=== PATIENT | male | born 1955 | race Hispanic/Latino ===

== ENCOUNTER 2024-10-29 09:43 | Day surgery (SDC) | payer OTHER ==
[~2024-10-29] VITALS: Ht 167.6 cm; Wt 80.7 kg
[2024-10-29] VITALS (13 sets, daily range): BP systolic 107–182; BP diastolic 61–89; PULSE 55–77; RESP 14–18; TEMP 97.6–98.4
[~2024-10-29 09:43] MED LIST: INDOMETHACIN 100 MG SUPP.RECT RC ONE
[2024-10-29] MEDS ORDERED: APIX5TAB PO (10:16)
[2024-10-29] MEDS ORDERED: LOSA50TA64 PO (10:16)
[2024-10-29] MEDS ORDERED: URSO500T10 PO (10:16)
[2024-10-29] MEDS: 0.9%NACL 1000ML 1,000 ML IV ONE (10:31)
[2024-10-29] MEDS ORDERED: SUCCINYLCHOLINE CHLORIDE 20 MG/ML 10 ML VIAL ONE (13:16)
[2024-10-29] MEDS ORDERED: proPOFol 10 MG/ML 20ML VIAL IV ONE (13:17)
[2024-10-29] MEDS ORDERED: ondanSETRON 4MG INJ ONE (13:17)
[2024-10-29] MEDS ORDERED: FENTanyl CITRate PF 50 MCG/1 ML 2ML VIAL ONE (13:17)
[2024-10-29] MEDS ORDERED: GLUCAGON 1MG KIT 1 MG ML ONE (14:12)
[2024-10-29] MEDS ORDERED: IOHEXOL-350 50ML VIAL IV ONE (15:38)
--- NOTE | 2024-10-29 16:42 | HMCIMG ---
ERCP BILI/PANC DUCT REASON: ABNORMAL RESULTS OF LIVER FUNCTION Studies, malignant NEOPLASM OF EXTRAHEPATIC. COMPARISON: None TECHNIQUE: ERCP was performed by referring physician. FINDINGS: Please see procedure report for by the referring physician. IMPRESSION: ERCP.
== END 2024-10-29 15:51 | disposition home or self-care (01) ==
LOC: ENDO 09:43 → DAH 09:43 → ENDO 15:51
PROVIDERS: ATTEND Internal Medicine Gastroenterology
DX: K80.51 Calculus of bile duct without cholangitis or cholecystitis with obstruction (principal); R94.5 Abnormal results of liver function studies; C24.0 Malignant neoplasm of extrahepatic bile duct; D69.8 Other specified hemorrhagic conditions; Z79.01 Long term (current) use of anticoagulants; Z79.899 Other long term (current) drug therapy
CPT/HCPCS: 43265; 43276; 43273; 74328; J3010; J0330; J7030 ×2; J1610; J2704; J2405; Q9967; C1876; C1769 ×2; A4215; A4223; A4222; A4221; A4663; A4606; C1773; 74330; J3490